=== PATIENT | female | born 1950 | race Hispanic/Latino ===

== ENCOUNTER 2019-08-30 00:58 | Emergency (ER) | payer SELFPAY ==
[2019-08-30] MEDS ORDERED: ONDANSETRON 4 MG/2 ML VIAL ONE (01:41)
[2019-08-30] MEDS ORDERED: NA CHLORIDE 0.9% 1,000 ML ONE ×3 (01:41→02:35)
[2019-08-30 02:11] LABS: ALT/SGPT 144 U/L (12-78); AST/SGOT 182 U/L (15-37); Albumin 3.7 g/dL (3.4-5.0); Alkaline Phosphatase 219 U/L (45-117); BUN Blood Urea Nitrogen 15 mg/dL (7-18); Bicarbonate 26 mmol/L (21-32); Bilirubin Direct 0.8 mg/dL (0-0.2); Bilirubin Total 1.3 mg/dL (0.2-1.0); Glucose Level 180 mg/dL (74-106); Magnesium 2.1 mg/dL (1.8-2.4); NT PRO-BNP 62 pg/mL (<125); Potassium 3.5 mmol/L (3.5-5.1); Protein, Total 7.7 g/dL (6.4-8.2); Sodium Level 139 mmol/L (136-145); Troponin (Emerg Dept Use Only) < 0.02 ng/mL (0.0-0.045)
[2019-08-30 02:16] LABS: Absolute Lymphocytes (CBC) 1.2 K/uL (0.7-4.9); Basophils % 0.3 % (0-1.3); Hematocrit 41.5 % (36.0-45.0); Lymphocytes % 12.1 % (15.3-44.8); MPV 9.2 fL (7.6-11.3); Protime INR 1.08; RBC Red Blood Cell Count 4.45 M/uL (3.86-4.86)
[2019-08-30 02:18] LABS: Lipase > 30000 U/L (73-393)
[2019-08-30] MEDS ORDERED: MORPHINE 4 MG/ML SYR ONE (02:26)
--- NOTE | 2019-08-30 02:30 | EDPHYS ---
Physician Documentation [facility] Name: Yin Ralph Age: 68 yrs Sex: Female : 1950 Arrival Date: 08/30/2019 Time: 01:01 Bed 5 Private MD: ED Physician Malcolm Sahu HPI: 08/30 01:32 This 68 yrs old Female presents to ER via Ambulatory with complaints of christiano Abdominal Pain. 01:32 The patient presents with abdominal pain in the upper abdomen, in the lower abdomen. christiano Onset: The symptoms/episode began/occurred 3 day(s) ago. The patient presents to the emergency department with nausea, vomiting, abdominal pain, of the right upper quadrant and left upper quadrant. Onset: The symptoms/episode began/occurred 3 day(s) ago. Possible causes: unknown. The symptoms are aggravated by. Associated signs and symptoms: The patient has no apparent associated signs or symptoms. Modifying factors: The symptoms are alleviated by nothing, the symptoms are aggravated by nothing. Historical: - Allergies: 01:12 No Known Allergies; lp1 - Home Meds: 01:12 None [Active]; lp1 - PMHx: 01:12 None; lp1 - PSHx: 01:12 Cholecystectomy; Hysterectomy; lp1 - Immunization history:: Adult Immunizations up to date. - Social history:: Smoking status: Patient/guardian denies using tobacco. - Ebola Screening: : No symptoms or risks identified at this time. ROS: 01:34 Constitutional: Negative for fever, chills, and weight loss, Eyes: Negative for injury, christiano pain, redness, and discharge, ENT: Negative for injury, pain, and discharge, Neck: Negative for injury, pain, and swelling, Cardiovascular: Negative for chest pain, palpitations, and edema, Respiratory: Negative for shortness of breath, cough, wheezing, and pleuritic chest pain, Back: Negative for injury and pain, : Negative for injury, bleeding, discharge, and swelling, MS/Extremity: Negative for injury and deformity, Skin: Negative for injury, rash, and discoloration, Neuro: Negative for headache, weakness, numbness, tingling, and seizure, Psych: Negative for depression, anxiety, suicide ideation, homicidal ideation, and hallucinations, Allergy/Immunology: Negative for hives, rash, and allergies, Endocrine: Negative for neck swelling, polydipsia, polyuria, polyphagia, and marked weight changes, Hematologic/Lymphatic: Negative for swollen nodes, abnormal bleeding, and unusual bruising. 01:34 Abdomen/GI: Positive for abdominal pain, nausea and vomiting, nausea, vomiting, of the epigastric area, right upper quadrant, left upper quadrant and left lower quadrant. Exam: 01:34 Constitutional: This is a well developed, well nourished patient who is awake, alert, christiano and in no acute distress. Head/Face: Normocephalic, atraumatic. Eyes: Pupils equal round and reactive to light, extra-ocular motions intact. Lids and lashes normal. Conjunctiva and sclera are non-icteric and not injected. Cornea within normal limits. Periorbital areas with no swelling, redness, or edema. ENT: Nares patent. No nasal discharge, no septal abnormalities noted. Tympanic membranes are normal and external auditory canals are clear. Oropharynx with no redness, swelling, or masses, exudates, or evidence of obstruction, uvula midline. Mucous membranes moist. Neck: Trachea midline, no thyromegaly or masses palpated, and no cervical lymphadenopathy. Supple, full range of motion without nuchal rigidity, or vertebral point tenderness. No Meningismus. Chest/axilla: Normal chest wall appearance and motion. Nontender with no deformity. No lesions are appreciated. Cardiovascular: Regular rate and rhythm with a normal S1 and S2. No gallops, murmurs, or rubs. Normal PMI, no JVD. No pulse deficits. Respiratory: Lungs have equal breath sounds bilaterally, clear to auscultation and percussion. No rales, rhonchi or wheezes noted. No increased work of breathing, no retractions or nasal flaring. Back: No spinal tenderness. No costovertebral tenderness. Full range of motion. Female : Normal external genitalia. Skin: Warm, dry with normal turgor. Normal color with no rashes, no lesions, and no evidence of cellulitis. MS/ Extremity: Pulses equal, no cyanosis. Neurovascular intact. Full, normal range of motion. Neuro: Awake and alert, GCS 15, oriented to person, place, time, and situation. Cranial nerves II-XII grossly intact. Motor strength 5/5 in all extremities. Sensory grossly intact. Cerebellar exam normal. Normal gait. Psych: Awake, alert, with orientation to person, place and time. Behavior, mood, and affect are within normal limits. 01:34 Abdomen/GI: Inspection: abdomen appears normal, Bowel sounds: normal, Palpation: nontender, in the right lower quadrant and left lower quadrant. Vital Signs: 01:12 BP 163 / 87; Pulse 76; Resp 18; Temp 98.3(O); Pulse Ox 100% on R/A; Weight 72.57 kg; lp1 Height 5 ft. 5 in. (165.10 cm); Pain 9/10; 02:00 BP 156 / 70; Pulse 69; Resp 18; Pulse Ox 98% on R/A; ea 03:30 BP 149 / 76; Pulse 92; Resp 18; Temp 98.2; Pulse Ox 99% ; ea 04:00 BP 158 / 86; Pulse 94; Resp 18; Pulse Ox 98% on R/A; ea 04:56 BP 154 / 80; Pulse 92; Resp 18; Pulse Ox 99% on R/A; Pain 0/10; ea 01:12 Body Mass Index 26.63 (72.57 kg, 165.10 cm) lp1 MDM: 01:24 Patient medically screened. [facility] 01:35 Data reviewed: vital signs, nurses notes, lab test result(s), EKG, radiologic studies, [facility] CT scan, plain films. 08/30 01:32 Order name: Basic Metabolic Panel; Complete Time: 02: [facility] 08/30 01:32 Order name: CBC with Diff; Complete Time: 02: [facility] 08/30 01:32 Order name: LFT's; Complete Time: 02: [facility] 08/30 01:32 Order name: Magnesium; Complete Time: 02: [facility] 08/30 01:32 Order name: NT PRO-BNP; Complete Time: 02: [facility] 08/30 01:32 Order name: PT-INR; Complete Time: 03:04 [facility] 08/30 01:32 Order name: Troponin (emerg Dept Use Only); Complete Time: 02: [facility] 08/30 01:32 Order name: XRAY Chest (1 view) [facility] 08/30 01:32 Order name: Lipase; Complete Time: 02: [facility] 08/30 01:32 Order name: Urine Culture [facility] 08/30 01:32 Order name: CT Abd/Pelvis - PO and IV Contrast [facility] 08/30 01:32 Order name: EKG; Complete Time: 01:34 [facility] 08/30 01:32 Order name: Cardiac monitoring; Complete Time: 01:55 [facility] 08/30 01:32 Order name: EKG - Nurse/Tech; Complete Time: 01:56 [facility] 08/30 01:32 Order name: IV Saline Lock; Complete Time: 01:56 [facility] 08/30 01:32 Order name: Labs collected and sent; Complete Time: 01:56 [facility] 08/30 01:32 Order name: O2 Per Protocol; Complete Time: 01:56 [facility] 08/30 01:32 Order name: O2 Sat Monitoring; Complete Time: 01:56 [facility] Administered Medications: 01:40 Drug: NS 0.9% 1000 ml Route: IV; Rate: 1 bolus; Site: right antecubital; ea 03:30 Follow up: Response: No adverse reaction; IV Status: Completed infusion; IV Intake: ea 1000ml 01:47 Drug: Zofran 4 mg Route: IVP; Site: right antecubital; ea 03:30 Follow up: Response: No adverse reaction ea 01:50 Drug: morphine 4 mg Route: IVP; Site: right antecubital; ea 02:30 Follow up: Response: No adverse reaction; Pain is decreased ea 02:55 Drug: NS 0.9% 1000 ml Route: IV; Rate: 1 bolus; Site: right antecubital; ea 04:04 Follow up: Response: No adverse reaction; IV Status: Completed infusion; IV Intake: ea 1000ml 02:55 Drug: Pepcid 20 mg Route: IVP; Site: right antecubital; ea 03:31 Follow up: Response: No adverse reaction ea 03:29 Drug: NS 0.9% 1000 ml Route: IV; Rate: 125 ml/hr; Site: right antecubital; ea 04:51 Follow up: Response: No adverse reaction; IV Status: Infusion continued upon transfer ea 03:30 Drug: Zosyn 3.375 grams Route: IVPB; Infused Over: 60 mins; Site: right antecubital; ea 04:37 Follow up: Response: No adverse reaction; IV Status: Completed infusion ea Disposition: 08/30/19 02:[address] [facility]. Diagnosis are Abdominal tenderness, Acute pancreatitis, Vomiting. - Reason for transfer: Higher level of care. - Accepting physician [facility] to [facility]. - Condition is Fair. - Problem is new. - Symptoms have improved. Signatures: Dispatcher [employer] Malcolm Fuller MD MD cha Pena, Laura RN RN lp1 Camille Ridley RN RN ea Corrections: (The following items were deleted from the chart) 04:57 02:29 08/30/2019 02:[address] [facility]. Diagnosis is ea Abdominal tenderness; Acute pancreatitis; Vomiting. Reason for transfer: Higher level of care. Accepting physician is to [facility]. Condition is Fair. Problem is new. Symptoms have improved. christiano
--- NOTE | 2019-08-30 02:30 | ER ---
Nurse's Notes [facility] Name: Yin Ralph Age: 68 yrs Sex: Female : 1950 Arrival Date: 08/30/2019 Time: 01:01 Bed 5 Private MD: Diagnosis: Abdominal tenderness;Acute pancreatitis;Vomiting Presentation: 08/30 01:11 Presenting complaint: Patient states: Abdominal pain radiating to back x 3 days, lp1 vomiting, constipation; Denies any fever. Transition of care: patient was not received from another setting of care. Onset of symptoms was August 30, 2019. Risk Assessment: Do you want to hurt yourself or someone else? Patient reports no desire to harm self or others. Initial Sepsis Screen: Does the patient meet any 2 criteria? No. Patient's initial sepsis screen is negative. Does the patient have a suspected source of infection? No. Patient's initial sepsis screen is negative. Care prior to arrival: None. 01:11 Method Of Arrival: Ambulatory lp1 01:11 Acuity: JESSICA 3 lp1 Historical: - Allergies: 01:12 No Known Allergies; lp1 - Home Meds: 01:12 None [Active]; lp1 - PMHx: 01:12 None; lp1 - PSHx: 01:12 Cholecystectomy; Hysterectomy; lp1 - Immunization history:: Adult Immunizations up to date. - Social history:: Smoking status: Patient/guardian denies using tobacco. - Ebola Screening: : No symptoms or risks identified at this time. Screenin:12 Abuse screen: Denies threats or abuse. Denies injuries from another. Nutritional lp1 screening: No deficits noted. Tuberculosis screening: No symptoms or risk factors identified. Fall Risk None identified. Assessment: 01:19 General: Appears uncomfortable, Behavior is calm, cooperative, appropriate for age. ea Pain: Complains of pain in abdomen. Neuro: Level of Consciousness is awake, alert, obeys commands, Oriented to person, place, time, situation. 02:50 Reassessment: Patient and/or family updated on plan of care and expected duration. Pain ea level reassessed. Patient is alert, oriented x 3, equal unlabored respirations, skin warm/dry/pink. 03:05 Reassessment: Patient and/or family updated on plan of care and expected duration. Pain ea level reassessed. Pt taken to CT. 03:38 Reassessment: Report called to Shannan GENTILE at [facility]. ea 04:02 Reassessment: Patient and/or family updated on plan of care and expected duration. Pain ea level reassessed. Patient is alert, oriented x 3, equal unlabored respirations, skin warm/dry/pink. 04:54 Reassessment: Patient and/or family updated on plan of care and expected duration. Pain ea level reassessed. Patient is alert, oriented x 3, equal unlabored respirations, skin warm/dry/pink. [facility] at facility for transfer to [facility], report given to EMS. Pt left ED via stretcher per EMS, tolerating well. Accompanied by family. Vital Signs: 01:12 BP 163 / 87; Pulse 76; Resp 18; Temp 98.3(O); Pulse Ox 100% on R/A; Weight 72.57 kg; lp1 Height 5 ft. 5 in. (165.10 cm); Pain 9/10; 02:00 BP 156 / 70; Pulse 69; Resp 18; Pulse Ox 98% on R/A; ea 03:30 BP 149 / 76; Pulse 92; Resp 18; Temp 98.2; Pulse Ox 99% ; ea 04:00 BP 158 / 86; Pulse 94; Resp 18; Pulse Ox 98% on R/A; ea 04:56 BP 154 / 80; Pulse 92; Resp 18; Pulse Ox 99% on R/A; Pain 0/10; ea 01:12 Body Mass Index 26.63 (72.57 kg, 165.10 cm) lp1 ED Course: 01:01 Patient arrived in ED. cl3 01:11 Triage completed. lp1 01:12 Arm band placed on. lp1 01:19 Camille Ridley, RN is Primary Nurse. ea 01:20 Patient has correct armband on for positive identification. Placed in gown. Bed in low ea position. Call light in reach. Side rails up X2. Adult w/ patient. 01:24 Malcolm Sahu MD is Attending Physician. christiano 01:40 Oral contrast given. eh 02:15 Oral contrast reported to be complete. eh 02:45 XRAY Chest (1 view) In Process Unspecified. EDMS 03:17 No provider procedures requiring assistance completed. Patient transferred, IV remains ea in place. 03:24 CT completed. Patient tolerated procedure well. Patient moved to CT via stretcher. Patient moved back from CT. 03:32 CT Abd/Pelvis - PO and IV Contrast In Process Unspecified. EDMS Administered Medications: 01:40 Drug: NS 0.9% 1000 ml Route: IV; Rate: 1 bolus; Site: right antecubital; ea 03:30 Follow up: Response: No adverse reaction; IV Status: Completed infusion; IV Intake: ea 1000ml 01:47 Drug: Zofran 4 mg Route: IVP; Site: right antecubital; ea 03:30 Follow up: Response: No adverse reaction ea 01:50 Drug: morphine 4 mg Route: IVP; Site: right antecubital; ea 02:30 Follow up: Response: No adverse reaction; Pain is decreased ea 02:55 Drug: NS 0.9% 1000 ml Route: IV; Rate: 1 bolus; Site: right antecubital; ea 04:04 Follow up: Response: No adverse reaction; IV Status: Completed infusion; IV Intake: ea 1000ml 02:55 Drug: Pepcid 20 mg Route: IVP; Site: right antecubital; ea 03:31 Follow up: Response: No adverse reaction ea 03:29 Drug: NS 0.9% 1000 ml Route: IV; Rate: 125 ml/hr; Site: right antecubital; ea 04:51 Follow up: Response: No adverse reaction; IV Status: Infusion continued upon transfer ea 03:30 Drug: Zosyn 3.375 grams Route: IVPB; Infused Over: 60 mins; Site: right antecubital; ea 04:37 Follow up: Response: No adverse reaction; IV Status: Completed infusion ea Intake: 03:30 IV: 1000ml; Total: 1000ml. ea 04:04 IV: 1000ml; Total: 2000ml. ea Outcome: 02:29 ER care complete, transfer ordered by . christiano 03:18 Instructed on the need for transfer, Demonstrated understanding of instructions. ea 04:54 Transferred by ground EMS to [facility], Transfer form completed. ea X-rays sent w/ patient. 04:54 Condition: stable 04:57 Patient left the ED. ea Signatures: Dispatcher [employer] EDMS Malcolm Sahu MD MD cha Hagler, Ervin eh Pena, Laura, RN RN lp1 Camille Ridley RN RN ea Elver, Esther cl3
[2019-08-30] MEDS ORDERED: FAMOTIDINE 20 MG/2 ML VIAL IV ONE (02:35)
[2019-08-30] MEDS ORDERED: PIPER/TAZO/NS 3.375gm 3.375 GM/100 ML BAG ONE (02:35)
[2019-08-30 05:06] VITALS: TEMP 98.2
[2019-08-30 05:08] VITALS: BP 154/80; O2SAT 99
--- NOTE | 2019-08-30 08:23 | RAD REPORT ---
EXAM DESCRIPTION: RAD - Chest Single View - 08/30/2019 2:45 am CLINICAL HISTORY: Abdominal pain, abdominal distention COMPARISON: None. TECHNIQUE: AP portable chest image was obtained 0216 hours . FINDINGS: Lungs are clear. Heart and vasculature are normal. No measurable pleural effusion and no p neumothorax. No acute bony abnormality seen. No acute aortic findings suspected. IMPRESSION: No acute cardiopulmonary process.
--- NOTE | 2019-08-30 10:07 | RAD REPORT ---
EXAM DESCRIPTION: CT - Abdomen Pelvis W Contrast - 08/30/2019 4:14 am CLINICAL HISTORY: ABD PAIN COMPARISON: None. TECHNIQUE: CT ABDOMEN PELVIS WITH IV CONTRAST on 08/30/2019 1:32 AM PROGRAMMABLE LOGIC CONTROLLER ASSEMBLER This exam was performed according to our departmental dose-optimization program, which includes autom ated exposure control, adjustment of the mA and/or kV according to patient size and/or use of iterati ve reconstruction technique. FINDINGS: Lower lungs are clear. Abdomen: The liver is normal in appearance. There is mild intra and extrahepatic biliary dilatation. There is appears to be absent. Gallbladder is not well-seen. There is thickening of the distal stomac h and descending duodenum. Spleen is normal in size. There is moderate diffuse peripancreatic inflamm ation. Pancreas enhances homogeneously. Adrenal glands are normal. There is a small mid to upper pole left renal cyst. Abdominal aorta is normal in course and caliber without aneurysm. There is no free air. There is no r etroperitoneal adenopathy. Pelvis: There is no bowel obstruction. Urinary bladder is unremarkable. There is no free fluid. Appen leti is normal. Skeleton: There are no acute osseous findings. No suspicious bony lesions. IMPRESSION: Diffuse acute pancreatitis Electronically signed by: Paulo Bernal MD 08/30/2019 3:51 AM PROGRAMMABLE LOGIC CONTROLLER ASSEMBLER Due to temporary technical issues with the PACS/Fluency reporting system, reports are being signed by the in house radiologist as a courtesy to ensure prompt reporting. The interpreting radiologist is f ully responsible for the content of the report.
--- NOTE | 2019-08-30 13:47 | EKG ---
Test Date: 2019-08-30 Test Time: 01:32:41 Cvt Rn: EMI MEASUREMENT RESULTS: Intervals: Rate: 68 IN: 138 QRSD: 94 QT: 390 QTc: 414 [place]: P: 76 IN: 138 QRS: 61 T: 55 INTERPRETIVE STATEMENTS: Normal sinus rhythm with sinus arrhythmia Normal ECG No previous ECG available for comparison Electronically Signed On 08-30-19 13:46:21 PLAQUE MAKER by Francois Plummer
== END 2019-08-30 04:57 | disposition short-term general hospital (02) ==
LOC: ER 00:58
DX: K85.90 Acute pancreatitis without necrosis or infection, unspecified (principal); R11.10 Vomiting, unspecified
CPT/HCPCS: 36415; 71045; 74177; 80048; 80076; 83690; 83735; 83880; 84484; 85025; 85610; 87086; 87088; 93005; 96361; 96365; 96375; 99285; J2405; J2543; J7030; Q9967